=== PATIENT | female | born 1990 | race American Indian/Alaskan Native ===

== ENCOUNTER 2016-08-30 10:01 | Emergency (ER) | payer SELFPAY ==
[2016-08-30 10:15] VITALS: BP 125/70
--- NOTE | 2016-08-30 12:25 | Emergency Department Report ---
Addendum entered and electronically signed by MARY MARINO PA 09/02/16 15:45 : on hpi and physical exam no abd pain was c/o or noted on abd exam. Original Note: ED ENT HPI - General Chief complaint: Sore Throat Stated complaint: ABD PAIN/SORE THROAT Time Seen by Provider: 08/30/16 12:15 Source: patient Mode of arrival: Ambulatory Limitations: No Limitations - History of Present Illness complaint: sore throat Location: throat Quality: burning Consistency: constant Associated Symptoms: sore throat - Related Data Previous Rx's Medication Instructions Recorded Last Taken Type Amoxicillin [Amoxicillin TAB] 875 mg PO BID #12 tablet 08/30/16 Unknown Rx Ondansetron [Zofran TAB] 4 mg PO Q8HR PRN #12 tablet 08/30/16 Unknown Rx Prednisone [predniSONE] 50 mg PO QDAY #5 tab 08/30/16 Unknown Rx Allergies Allergy/AdvReac Type Severity Reaction Status Date / Time No Known Allergies Allergy Unverified 08/30/16 10:09 ED Dental HPI - General Chief complaint: Sore Throat Stated complaint: ABD PAIN/SORE THROAT Time Seen by Provider: 08/30/16 12:15 Source: patient Mode of arrival: Ambulatory Limitations: No Limitations - History of Present Illness complaint: sore throat Severity: mild Worsens with: swallowing Dental Associated Symptons: Yes: Headache - Related Data Previous Rx's Medication Instructions Recorded Last Taken Type Amoxicillin [Amoxicillin TAB] 875 mg PO BID #12 tablet 08/30/16 Unknown Rx Ondansetron [Zofran TAB] 4 mg PO Q8HR PRN #12 tablet 08/30/16 Unknown Rx Prednisone [predniSONE] 50 mg PO QDAY #5 tab 08/30/16 Unknown Rx Allergies Allergy/AdvReac Type Severity Reaction Status Date / Time No Known Allergies Allergy Unverified 08/30/16 10:09 ED Review of Systems ROS: Stated complaint: ABD PAIN/SORE THROAT Other details as noted in HPI Constitutional: denies: chills, fever Eyes: denies: eye pain, eye discharge, vision change ENT: throat pain. denies: ear pain Respiratory: denies: cough, shortness of breath, wheezing Cardiovascular: denies: chest pain, palpitations Endocrine: no symptoms reported Gastrointestinal: denies: abdominal pain, nausea, diarrhea Genitourinary: denies: urgency, dysuria, discharge Musculoskeletal: denies: back pain, joint swelling, arthralgia Skin: denies: rash, lesions Neurological: denies: headache, weakness, paresthesias Psychiatric: denies: anxiety, depression Hematological/Lymphatic: denies: easy bleeding, easy bruising ED Past Medical Hx - Past Medical History Previous Medical History?: Yes Hx of Cancer: Yes (cervix) Additional medical history: Vaginal delivery - Surgical History Past Surgical History?: Yes Additional Surgical History: Cervical conization - Social History Smoking Status: Never Smoker Substance Use Type: Alcohol - Medications Home Medications: Home Medications Medication Instructions Recorded Confirmed Last Taken Type Amoxicillin [Amoxicillin TAB] 875 mg PO BID #12 tablet 08/30/16 Unknown Rx Ondansetron [Zofran TAB] 4 mg PO Q8HR PRN #12 tablet 08/30/16 Unknown Rx Prednisone [predniSONE] 50 mg PO QDAY #5 tab 08/30/16 Unknown Rx ED Physical Exam - General Limitations: No Limitations General appearance: alert, in no apparent distress - Head Head exam: Present: atraumatic, normocephalic - Eye Eye exam: Present: normal appearance - ENT ENT exam: Present: mucous membranes moist - Expanded ENT Exam Expanded Mouth exam: Absent: trismus Throat exam: Positive: tonsillar erythema, tonsillar exudate. Negative: R peritonsillar mass, L peritonsillar mass - Neck Neck exam: Present: normal inspection, lymphadenopathy. Absent: tenderness, meningismus - Respiratory Respiratory exam: Present: normal lung sounds bilaterally. Absent: respiratory distress, wheezes, rales - Cardiovascular Cardiovascular Exam: Present: regular rate, normal rhythm. Absent: systolic murmur, diastolic murmur, rubs, gallop - GI/Abdominal GI/Abdominal exam: Present: soft, normal bowel sounds - Extremities Exam Extremities exam: Present: normal inspection - Back Exam Back exam: Present: normal inspection - Neurological Exam Neurological exam: Present: alert, oriented X3 - Psychiatric Psychiatric exam: Present: normal affect, normal mood - Skin Skin exam: Present: warm, dry, intact, normal color. Absent: rash ED Course Vital Signs 08/30/16 10:09 Temperature 97.3 F L Pulse Rate 83 Respiratory 16 Rate Blood Pressure 125/70 O2 Sat by Pulse 100 Oximetry Critical care attestation.: If time is entered above; I have spent that time in minutes in the direct care of this critically ill patient, excluding procedure time. ED Disposition Clinical Impression: Tonsillitis Disposition: DISCHARGED TO HOME OR SELFCARE Is pt being admited?: No Condition: Stable Prescriptions: Amoxicillin [Amoxicillin TAB] 875 mg PO BID #12 tablet Ondansetron [Zofran TAB] 4 mg PO Q8HR PRN #12 tablet PRN Reason: Nausea And Vomiting Prednisone [predniSONE] 50 mg PO QDAY #5 tab Referrals: PRIMARY CARE, [Primary Care Provider] - 3-5 Days
== END 2016-08-30 12:35 | disposition home or self-care (01) ==
LOC: ED 10:01
DX: J03.90 Acute tonsillitis, unspecified (principal); R51 Headache; Z85.41 Personal history of malignant neoplasm of cervix uteri; Z98.890 Other specified postprocedural states
CPT/HCPCS: 99282

== ENCOUNTER 2016-09-29 00:28 | Emergency (ER) | payer SELFPAY ==
[2016-09-29 04:49] VITALS: BP 112/55
--- NOTE | 2016-09-29 05:02 | Emergency Department Report ---
HPI - General Chief Complaint: Allergic Reaction Time Seen by Provider: 09/29/16 03:32 - HPI HPI: This is a 26-year-old female that presents with rash of the face. Patient has noticed this yesterday afternoon during her stay at [facility]. Patient stated has been using lotion from the hotel to the face. Patient denies any shortness of breath, chest pain, nausea vomiting, difficulty breathing, numbness or tingling sensation. Patient denies history of symptoms. Associated symptoms include itching. Patient does not seem toxic or ill in appearance. Patient stated to [id number] steroid cream with no relief. Patient does not remember name of the steroid cream that was used. Patient does not seem any signs of distress. ED Past Medical Hx - Past Medical History Previous Medical History?: No Additional medical history: Vaginal delivery - Surgical History Past Surgical History?: Yes Additional Surgical History: Cervical conization - Social History Smoking Status: Never Smoker Substance Use Type: Alcohol - Medications Home Medications: Home Medications Medication Instructions Recorded Confirmed Last Taken Type Amoxicillin [Amoxicillin TAB] 875 mg PO BID #12 tablet 08/30/16 Unknown Rx Ondansetron [Zofran TAB] 4 mg PO Q8HR PRN #12 tablet 08/30/16 Unknown Rx Prednisone [predniSONE] 50 mg PO QDAY #5 tab 08/30/16 Unknown Rx Prednisone [predniSONE (Samm) ER 40 mg PO QDAY 5 Days 09/29/16 Unknown Rx TAB] diphenhydrAMINE [Benadryl CAP] 25 mg PO Q6HR PRN 5 Days 09/29/16 Unknown Rx ED Review of Systems ROS: Stated complaint: ALLERGIC REACTION/FACIAL HIVES Other details as noted in HPI Constitutional: denies: chills, fever Eyes: denies: eye pain, eye discharge, vision change ENT: denies: ear pain, throat pain Respiratory: denies: cough, shortness of breath, wheezing Cardiovascular: denies: chest pain, palpitations Endocrine: no symptoms reported Gastrointestinal: denies: abdominal pain, nausea, diarrhea Genitourinary: denies: urgency, dysuria, discharge Musculoskeletal: denies: back pain, joint swelling, arthralgia Skin: rash (face). denies: lesions, change in color, change in hair/nails Neurological: denies: headache, weakness, paresthesias Psychiatric: denies: anxiety, depression Hematological/Lymphatic: denies: easy bleeding, easy bruising Physical Exam - Physical Exam Vital Signs: Vital Signs 09/29/16 09/29/16 01:11 04:48 Temperature 98.1 F 97.8 F Pulse Rate 73 69 Respiratory 18 20 Rate Blood Pressure 106/70 Blood Pressure 112/55 [Right] O2 Sat by Pulse 100 100 Oximetry Physical Exam: CONSTITUTIONAL: No weight loss, fever, chills, weakness or fatigue. HEENT: Eyes: No visual loss, blurred vision, double vision or yellow sclerae. Ears, Nose, Throat: No hearing loss, sneezing, congestion, runny nose or sore throat. SKIN: Facial and neck maculopapular rash. Pruritus present. CARDIOVASCULAR: No chest pain, chest pressure or chest discomfort. No palpitations or edema. RESPIRATORY: No shortness of breath, cough or sputum. GASTROINTESTINAL: No anorexia, nausea, vomiting or diarrhea. No abdominal pain or blood. GENITOURINARY: No Burning on urination. NEUROLOGICAL: No headache, dizziness, syncope, paralysis, ataxia, numbness or tingling in the extremities. No change in bowel or bladder control. MUSCULOSKELETAL: No muscle, back pain, joint pain or stiffness. HEMATOLOGIC: No anemia, bleeding or bruising. LYMPHATICS: No enlarged nodes. No history of splenectomy. PSYCHIATRIC: No history of depression or anxiety. ENDOCRINOLOGIC: No reports of sweating, cold or heat intolerance. No polyuria or polydipsia. ALLERGIES: No history of asthma, hives, eczema or rhinitis. ED Course Vital Signs 09/29/16 09/29/16 01:11 04:48 Temperature 98.1 F 97.8 F Pulse Rate 73 69 Respiratory 18 20 Rate Blood Pressure 106/70 Blood Pressure 112/55 [Right] O2 Sat by Pulse 100 100 Oximetry ED Medical Decision Making - Medical Decision Making Ed course: 26-year-old female that presents with pruritic maculopapular rash 1- patient received Solu-Medrol IM 40 mg. Patient tolerate well no signs of distress noted. 2- I instructed the patient to take full course of prednisone as this is an allergic reaction to the lotion that was used. 3- I also instructed the patient to take Benadryl as needed for itching 4- at the time of discharge the patient does not seem toxic or ill in appearance. 5- patient agrees to discharge plan and treatment. No further questions noted by the patient. Critical care attestation.: If time is entered above; I have spent that time in minutes in the direct care of this critically ill patient, excluding procedure time. ED Disposition Clinical Impression: Pruritic rash Contact dermatitis Qualifiers: Contact dermatitis type: allergic Contact dermatitis trigger: unspecified trigger Qualified Code(s): L23.9 - Allergic contact dermatitis, unspecified cause Disposition: DISCHARGED TO HOME OR SELFCARE Is pt being admited?: No Does the pt Need Aspirin: No Condition: Stable Instructions: Contact Dermatitis (ED) Additional Instructions: Please follow up with the primary care doctor in 3-5 days. Take medication as prescribed. Benadryl causes sedation so please do not use any heavy machinery. If symptoms worsen report back to emergency room. Prescriptions: diphenhydrAMINE [Benadryl CAP] 25 mg PO Q6HR PRN 5 Days PRN Reason: ithcing Prednisone [predniSONE (Samm) ER TAB] 40 mg PO QDAY 5 Days Referrals: PRIMARY CARE, [Primary Care Provider] - 3-[address] [facility] [Outside] - 3-5 Days [facility] [Outside] - 3-5 Days Forms: Work/School Release Form(ED)
== END 2016-09-29 05:33 | disposition home or self-care (01) ==
LOC: ED 00:28
DX: L23.9 Allergic contact dermatitis, unspecified cause (principal)
CPT/HCPCS: 96372; 99282; J2920

== ENCOUNTER 2017-11-14 06:24 | Emergency (ER) | payer SELFPAY ==
[2017-11-14 06:44] VITALS: BP 114/61
[2017-11-14] MEDS ORDERED: TYLENOL PO ONE (07:53)
--- NOTE | 2017-11-14 07:53 | Emergency Department Report ---
ED ENT HPI - General Chief complaint: Dental/Oral Stated complaint: TOOTHACHE,HEADACHE Time Seen by Provider: 11/14/17 07:40 Source: patient Mode of arrival: Ambulatory Limitations: No Limitations - History of Present Illness Initial comments: Patient's 27-year-old Afro-Spanish female 22 weeks presents for dental pain 1 day right upper gum irritation and swelling no facial pain or ear pain no sore throat no fever no chills patient is tolerating by mouth intake without symptoms MD complaint: tooth pain Onset/Timin -: days(s) Location: tooth # (4) Severity: moderate Severity scale (0 -10): 3 Quality: aching Consistency: intermittent Improves with: none Worsens with: other (hot cold sensation) Associated Symptoms: gum swelling, toothache. denies: fever, cough, pain with swallowing, sore throat, tinnitus, hearing loss, discharge from ear, rhinorrhea - Related Data Previous Rx's Medication Instructions Recorded Last Taken Type Amoxicillin [Amoxicillin TAB] 875 mg PO BID #12 tablet 08/30/16 Unknown Rx Ondansetron [Zofran TAB] 4 mg PO Q8HR PRN #12 tablet 08/30/16 Unknown Rx Prednisone [predniSONE] 50 mg PO QDAY #5 tab 08/30/16 Unknown Rx Prednisone [predniSONE (Samm) ER 40 mg PO QDAY 5 Days tablet. 09/29/16 Unknown Rx TAB] diphenhydrAMINE [Benadryl CAP] 25 mg PO Q6HR PRN 5 Days capsule 09/29/16 Unknown Rx Acetaminophen [Non-Aspirin] 325 mg PO QID PRN #60 tablet 11/14/17 Unknown Rx Clindamycin [Clindamycin CAP] 150 mg PO QID #40 capsule 11/14/17 Unknown Rx Allergies Allergy/AdvReac Type Severity Reaction Status Date / Time No Known Allergies Allergy Unverified 08/30/16 10:09 ED Dental HPI - General Chief complaint: Dental/Oral Stated complaint: TOOTHACHE,HEADACHE Time Seen by Provider: 11/14/17 07:40 Source: patient Mode of arrival: Ambulatory Limitations: No Limitations - Related Data Previous Rx's Medication Instructions Recorded Last Taken Type Amoxicillin [Amoxicillin TAB] 875 mg PO BID #12 tablet 08/30/16 Unknown Rx Ondansetron [Zofran TAB] 4 mg PO Q8HR PRN #12 tablet 08/30/16 Unknown Rx Prednisone [predniSONE] 50 mg PO QDAY #5 tab 08/30/16 Unknown Rx Prednisone [predniSONE (Samm) ER 40 mg PO QDAY 5 Days tablet. 09/29/16 Unknown Rx TAB] diphenhydrAMINE [Benadryl CAP] 25 mg PO Q6HR PRN 5 Days capsule 09/29/16 Unknown Rx Acetaminophen [Non-Aspirin] 325 mg PO QID PRN #60 tablet 11/14/17 Unknown Rx Clindamycin [Clindamycin CAP] 150 mg PO QID #40 capsule 11/14/17 Unknown Rx Allergies Allergy/AdvReac Type Severity Reaction Status Date / Time No Known Allergies Allergy Unverified 08/30/16 10:09 ED Review of Systems ROS: Stated complaint: TOOTHACHE,HEADACHE Other details as noted in HPI Constitutional: denies: chills, fever Eyes: denies: eye pain, eye discharge, vision change ENT: dental pain. denies: ear pain, throat pain, hearing loss, epistaxis, congestion Respiratory: denies: cough, shortness of breath, wheezing Cardiovascular: denies: chest pain, palpitations Endocrine: no symptoms reported Gastrointestinal: denies: abdominal pain, nausea, diarrhea Genitourinary: denies: urgency, dysuria, discharge Musculoskeletal: denies: back pain, joint swelling, arthralgia Skin: denies: rash, lesions Neurological: denies: headache, weakness, paresthesias Psychiatric: denies: anxiety, depression Hematological/Lymphatic: denies: easy bleeding, easy bruising ED Past Medical Hx - Past Medical History Previous Medical History?: Yes Additional medical history: Vaginal delivery, 5 months - Surgical History Past Surgical History?: Yes Additional Surgical History: Cervical conization - Social History Smoking Status: Never Smoker - Medications Home Medications: Home Medications Medication Instructions Recorded Confirmed Last Taken Type Amoxicillin [Amoxicillin TAB] 875 mg PO BID #12 tablet 08/30/16 Unknown Rx Ondansetron [Zofran TAB] 4 mg PO Q8HR PRN #12 tablet 08/30/16 Unknown Rx Prednisone [predniSONE] 50 mg PO QDAY #5 tab 08/30/16 Unknown Rx Prednisone [predniSONE (Samm) ER 40 mg PO QDAY 5 Days tablet. 09/29/16 Unknown Rx TAB] diphenhydrAMINE [Benadryl CAP] 25 mg PO Q6HR PRN 5 Days capsule 09/29/16 Unknown Rx Acetaminophen [Non-Aspirin] 325 mg PO QID PRN #60 tablet 11/14/17 Unknown Rx Clindamycin [Clindamycin CAP] 150 mg PO QID #40 capsule 11/14/17 Unknown Rx ED Physical Exam - General Limitations: No Limitations General appearance: alert, in no apparent distress - Head Head exam: Present: atraumatic, normocephalic - Eye Eye exam: Present: normal appearance - ENT ENT exam: Present: normal orophraynx, mucous membranes moist, TM's normal bilaterally, normal external ear exam - Expanded ENT Exam Expanded Mouth exam: Absent: trismus, muffled voice Teeth exam: Present: dental caries, dental tenderness #. Absent: gingival enlargement 1 - Dental Tenderness Throat exam: Positive: normal inspection. Negative: tonsillar erythema, tonsillomegaly, tonsillar exudate, R peritonsillar mass, L peritonsillar mass - Neck Neck exam: Present: normal inspection, full ROM. Absent: tenderness, lymphadenopathy, thyromegaly - Respiratory Respiratory exam: Present: normal lung sounds bilaterally. Absent: respiratory distress - Cardiovascular Cardiovascular Exam: Present: regular rate, normal rhythm. Absent: systolic murmur, diastolic murmur, rubs, gallop - GI/Abdominal GI/Abdominal exam: Present: soft, normal bowel sounds - Rectal Rectal exam: Present: deferred - Extremities Exam Extremities exam: Present: normal inspection - Back Exam Back exam: Present: normal inspection - Neurological Exam Neurological exam: Present: alert, oriented X3 - Psychiatric Psychiatric exam: Present: normal affect, normal mood - Skin Skin exam: Present: warm, dry, intact, normal color. Absent: rash ED Course Vital Signs 11/14/17 06:41 Temperature 98.3 F Pulse Rate 77 Respiratory 14 Rate Blood Pressure 114/61 O2 Sat by Pulse 100 Oximetry ED Medical Decision Making - Medical Decision Making pt with infected dental carries no focal abscess no ear or throat pain , pt is tolerating po intake there is no fever or chills , plan: clindamycin po , tylenol prn pain follow up with [facility] today for evaluation. pt verbalized agreement and understanding of same. Critical care attestation.: If time is entered above; I have spent that time in minutes in the direct care of this critically ill patient, excluding procedure time. ED Disposition Clinical Impression: Infected dental carries Disposition: DC- TO HOME OR SELFCARE Is pt being admited?: No Does the pt Need Aspirin: No Condition: Good Instructions: Dental Caries (ED) Additional Instructions: follow up with [facility] today Prescriptions: Acetaminophen [Non-Aspirin] 325 mg PO QID PRN #60 tablet PRN Reason: Pain Clindamycin [Clindamycin CAP] 150 mg PO QID #40 capsule Referrals: [facility] [Outside] - 3-5 Days Forms: Work/School Release Form(ED) Time of Disposition: 07:56
== END 2017-11-14 08:05 | disposition home or self-care (01) ==
LOC: ED 06:24
DX: O99.612 Diseases of the digestive system complicating pregnancy, second trimester (principal); K02.9 Dental caries, unspecified
CPT/HCPCS: 99282